=== PATIENT | male | born 1985 | race Caucasian/White ===

== ENCOUNTER 2020-02-15 09:13 | Day surgery (SDC) | payer OTHER, SELFPAY ==
[2020-02-09 12:58] VITALS: BMI 39.5
--- NOTE | 2020-02-14 09:21 | HO.ANESPROP2 ---
Documented by User: Yun Martinez 02/14/20 09:22 HPI - Anesthesia Eval Consult details Narrative: 34yo M for Colonoscopy [facility] Past Medical History Medical History Family hx of colon cancer Thyroid disease Surgical History Surgical History Hx of arthroscopic knee surgery Social History Social History Smoking Status: Former smoker Packs Per Day: 1 Cigarettes Per Day: 20.0 Years Smoked: 10 Smoked in Last 30 Days: No Smoking Quit Date: 2013 Use of substances other than those prescribed or required for medical reasons: No Have you been hit, kicked, punched, or otherwise hurt by someone within the past year? If so, by whom?: No Advance Directives Information Provided: No Recently lost weight without trying: No Meds Allergies Allergy/AdvReac Type Severity Reaction Status Date / Time No Known Allergies Allergy Verified 02/09/20 13:02 [No Known Allergies*] Home Medications Medication Instructions Recorded Confirmed Type levothyroxine 1 tab PO QAM 02/09/20 02/09/20 History Exam Exam Date and Time: February 14, 2020920 Height,Weight and Vital Signs: Height 5 ft 8 in Weight 117.934 kg Pertinent Lab Results Pertinent Lab Results: Laboratory Tests 11/21/19 11/21/19 11:24 11:24 WBC 6.2 Hgb 14.7 Hct 43.8 Plt Count 299 Sodium 138 Potassium 4.3 Chloride 106 BUN 16 Creatinine 0.91 Assessment and Plan Assessment Anesthesia Assessment: Chart Reviewed Documented by User: Baldemar Locke 02/15/20 10:27 [facility] Past Medical History Medical History Family hx of colon cancer Thyroid disease Surgical History Surgical History Hx of arthroscopic knee surgery Social History Social History Smoking Status: Former smoker Packs Per Day: 1 Cigarettes Per Day: 20.0 Years Smoked: 10 Smoked in Last 30 Days: No Smoking Quit Date: 2013 Use of substances other than those prescribed or required for medical reasons: No Have you been hit, kicked, punched, or otherwise hurt by someone within the past year? If so, by whom?: No Advance Directives Information Provided: No Recently lost weight without trying: No Meds Allergies Allergy/AdvReac Type Severity Reaction Status Date / Time No Known Allergies Allergy Verified 02/09/20 13:02 [No Known Allergies*] Home Medications Medication Instructions Recorded Confirmed Type levothyroxine 1 tab PO QAM 02/09/20 02/09/20 History Exam Airway Mallampati Class: II TM Dist: >3cm Neck ROM: Full Heart: RRR Assessment and Plan Assessment Anesthesia Assessment: Anesthesia Plan Discussed Final Anesthetic Review NPO: Yes (Except med) ASA Class: II Final Preanesthetic Review: Consent Obtained/Reviewed Anesthetic Plan Anesthetic Plan: MAC: Disposition: Standard PACU
[2020-02-15 09:52] VITALS: BP 122/75; PULSE 87; RESP 16; TEMP 36.3; O2SAT 95
[2020-02-15] MEDS: Lactated Ringers 1,000 ML 100 ML IVCONT (09:57)
--- NOTE | 2020-02-15 10:35 | MHC.SHP ---
Pre-Procedural Eval Section B Chief Complaint: SCREENING,FAMILY HX OF COLON CANCER Relevant Family History (Specify if Yes): Yes Relevant Social History: None Present Medications: see Short Stay Collaborative assessment Medical History: Significant History (hypothyroid) History of Previous Operations: No relevant previous surgery Allergies: Allergies Allergy/AdvReac Type Severity Reaction Status Date / Time No Known Allergies Allergy Verified 02/09/20 13:02 [No Known Allergies*] Review of Systems Sugical H&P ROS: Negative: Constitution, Cardiovascular, Respiratory, Neurological, Psychiatric, Hem-Onc, Allergic/Immunologic, Gastrointestinal, Genitourinary, Musculoskeletal, Integumentary, Endocrine and Eyes/Ears/Nose/Throat Exam Surgical H&P Exam: Normal: HEENT, Normal: Heart, Normal: Lungs, Normal: Extremities, Normal: Abdomen, Normal: Skin and Normal: Neurological Plan Diagnosis/Plan: Unchanged Patient has been examined and remains a candidate for the planned procedure
--- NOTE | 2020-02-15 10:36 | PM.OP ---
Brief Operative Note Date of procedure: 02/15/20 Pre-op diagnosis: colon screen, high risk Post-op diagnosis: same Procedure: colonoscopy--see op note Surgeon: Edson Johns MD Anesthesia: MAC Estimated blood loss (mL): 0 Condition: stable Disposition: PACU
--- NOTE | 2020-02-15 10:37 | W.PM.OPN ---
Operative Note Operative Note Narrative: Operative Information Procedure Description: Colonoscopy COLONOSCOPY Instrument: Olympus variable stiffness pediatric scope 190L Colonoscopy Monitoring: Vital signs and clinical assessment, continuous EKG monitoring, Pulse oximetry, Carbon Dioxide monitoring and blood pressure monitoring were done throughout the procedure. Colon withdrawal time was 9 minutes. Procedure: The patient was placed in the left lateral decubitis position and pre-procedure medications were administered. After a digital rectal examination of the ano-rectum, the video colonoscope was inserted into the rectum and advanced through the colon to the cecum/TI. The colonoscope was slowly withdrawn in a retrograde panoramic fashion and the colon mucosa was carefully examined including a retroflexed view of the rectum. Findings and interventions are described below. Procedure Difficulty: Findings: Terminal Ileum-normal Cecum:normal Ascending Colon: normal Transverse Colon -normal Descending Colon:normal Sigmoid Colon: few diverticula seen Rectum: Retroflexion with moderate sized internal hemorrhoids, grade I Anorectum - normal Colon preparation: [facility] Bowel Preparation Scale Right colon; 3 Transverse colon: 3 Left colon; 3 (0 = Unprepared colon segment with mucosa not seen due to solid stool that cannot be cleared. 1 = Portion of mucosa of the colon segment seen, but other areas of the colon segment not well seen due to staining, residual stool and/or opaque liquid. 2 = Minor amount of residual staining, small fragments of stool and/or opaque liquid, but mucosa of colon segment seen well. 3 = Entire mucosa of colon segment seen well with no residual staining, small fragments of stool or opaque liquid) Impression and Post Procedure Diagnosis: internal hemorrhoids diverticular disease Plan: High fiber diet leaflet Avoid straining at stool, epsom salts and sitz bath prn, anusol supps or cream prn Repeat Colonoscopy in 5 years or earlier if clinically indicated Above findings were reviewed with the patient and relevant handouts were provided if indicated.
[2020-02-15 10:59] VITALS: BP 117/78; PULSE 100; RESP 18; TEMP 36.5; O2SAT 100
[2020-02-15 11:15] VITALS: BP 108/52; PULSE 74; RESP 18; TEMP 36.1
--- NOTE | 2020-02-15 11:55 | HO.POSTANES ---
Post Anesthesia Evaluation Post Anesthesia Evaluation Vital Signs: Vital Signs Temp Pulse Resp BP Pulse Ox 02/15/20 11:15 97 F 74 18 108/52 L 02/15/20 10:59 97.7 F 100 18 117/78 100 02/15/20 09:52 97.4 F 87 16 122/75 95 Anesthesia: Monitored Mental Status: Awake Pain Control: Satisfactory Nausea/Vomiting: None Hydration: Adequate Anesthesia-Related Issues: No Anes. Related Issues
== END 2020-02-15 12:00 | disposition home or self-care (01) ==
PROVIDERS: PCP Physician Assistant; Visit Provider Internal Medicine Gastroenterology
PROC: 0DJD8ZZ Inspection of Lower Intestinal Tract, Via Natural or Artificial Opening Endoscopic (ICD-10-PCS; CPT 45378; principal; 2020-02-15 10:30)
DX: Z12.11 Encounter for screening for malignant neoplasm of colon (principal); Z80.0 Family history of malignant neoplasm of digestive organs; K57.30 Diverticulosis of large intestine without perforation or abscess without bleeding; K64.0 First degree hemorrhoids; E06.3 Autoimmune thyroiditis; Z79.899 Other long term (current) drug therapy; Z87.891 Personal history of nicotine dependence
CPT/HCPCS: 45378

== ENCOUNTER 2020-03-20 08:06 | Outpatient (REF) | payer OTHER, SELFPAY ==
--- NOTE | 2020-03-21 08:43 | MHC.AU.P13 ---
Adult Audiological Evaluation Date of Visit: 03/20/20 Sustainability Specialist Used: Not Applicable Reason for Appointment: Audiologic evaluation due to increasing difficulties hearing. Has also been experiencing intermittent tinny quality to sounds or a perception of sounds being out of tune . This symptom has been increasing over time so that he notices it every 1 1/2 to 2 weeks when he used to notice it once every few months. Does patient feel they have a hearing loss?: Yes If Yes, Which Ear?: Both Ears When Was Hearing Difficulty First Noticed?: 10 or more years Has hearing been tested previously?: Yes Previous Hearing Test Results: Performed in the . Results are not available for review Hearing Handicap Inventory HHIE SCORE: 28 Based on HHIE score, patient has: Severe perceived hearing handicap Ear History: Ear Infections in Childhood: Both Ears History of Ear Wax Buildup: Both Ears Previous Ear Surgery: Pressure Equalization Tubes as a child Bothersome Tinnitus/Ringing/Noises in Ears: Both Ears Ear used on the phone: Left Ear History of occupational noise exposure?: Yes History: History: Yes Branch: [employer] Years in : 13-16 Years Medical History: Medical History: Autoimmune Disease Thyroid Disease Tobacco Use Medical History: Diagnosed with Kristen Syndrome and Hypothyroidism. Research suggests these conditions may increase hearing loss and middle ear dysfunction. Medication List: Levothyroxine Otoscopy: Right Ear: Edge of tympanic membrane dull compared to medial Left Ear: Scarring on tympanic membrane Tympanometry: Right Ear: Normal Middle Ear System (Type A) Left Ear: Normal Middle Ear System (Type A) Otoacoustic Emissions Frequency Range Used: 1.6-8 kHz Right Ear Results: Absent Emissions Analysis: Reduced/absent emissions may be consequence of middle ear dysfunction Left Ear Results: Absent Emissions Analysis: Reduced/absent emissions may be consequence of middle ear dysfunction Hearing Evaluation: Transducer(s) Used: Insert Earphones Bone Conduction Method: Conventional Audiometry Stimuli Used: Pure Tones Right Ear: Description of Hearing: Mild conductive hearing loss through all frequencies Left Ear: Description of Hearing: Borderline normal hearing thresholds with conductive components of 10-20 dB Speech Recognition Threshold (SRT): Method Used: Monitored Live Voice Stimuli Used: Spondee Words Right Ear: 20 dB HL Left Ear: 20 dB HL Word Discrimination: Method: Recorded Lists Word Lists Used: NU-6 Right Ear: 100% at a listening level of 60 dB HL Left Ear: 100% at a listening level of 60 dB HL Comparison: Compared to the most recent evaluation: N/A Recommendations: Recommendations: Audiological re-evaluation in 6 months. Referral to Ear, Nose, and Throat to address middle ear dysfunction. Recommendations (Other): Sending a 6 month audiologic re-evaluation reminder card. If changes in hearing or symptoms, an earlier appointment should be considered. Diagnosis: Primary Diagnosis: H90.0 Conductive Hearing Loss, Bilateral Secondary Diagnosis: H69.93 Unspecified Eustachian Tube Dysfunction, Bilateral Services Performed: Services Performed: Comprehensive Audiological Evaluation (CPT 49899) Diagnostic Otoacoustic Emissions (CPT 69613, 26+TC) Tympanometry (CPT 60604) Signature: Provider: Darrick Cerrato, CCC-A
== END 2020-03-20 08:07 | disposition home or self-care (01) ==
LOC: HO.SH 08:06
PROVIDERS: Visit Provider Physician Assistant
DX: H90.0 Conductive hearing loss, bilateral (principal); H69.93 Unspecified Eustachian tube disorder, bilateral
CPT/HCPCS: 92557; 92567; 92588

== ENCOUNTER 2020-05-01 09:00 | Outpatient (REF) | payer OTHER, SELFPAY ==
[2020-05-01 14:19] LABS: Free T4 (Free Thyroxine) 1.28 ng/dL (0.71-1.85); Thyroid Stimulating Hormone 1.83 uIU/mL (0.32-4.0)
== END 2020-05-01 09:01 | disposition home or self-care (01) ==
LOC: HO.LAB 09:00
PROVIDERS: PCP Physician Assistant; Visit Provider Nurse Practitioner Gerontology
DX: E06.3 Autoimmune thyroiditis (principal)
CPT/HCPCS: 36415; 84439; 84443

== ENCOUNTER 2021-04-22 10:10 | Outpatient (REF) | payer OTHER, SELFPAY ==
--- NOTE | ~2021-04-22 | XR_ITS ---
EXAMINATION: BILATERAL WRIST X-RAY CLINICAL INFORMATION: Pain COMPARISON: None TECHNIQUE: 4 views of each wrist FINDINGS: Left: Bone alignment is normal. No fracture or dislocation is seen. Joint spaces are normal. There may be a cyst in the lunate. Soft tissues are unremarkable. Right: Bone alignment is normal. No fracture or dislocation is seen. Joint spaces and soft tissues are normal. XR/XR wrist RT 2V IMPRESSION: Question small cyst in the left lunate bone otherwise unremarkable exam.
--- NOTE | ~2021-04-22 | XR_ITS ---
EXAMINATION: BILATERAL WRIST X-RAY CLINICAL INFORMATION: Pain COMPARISON: None TECHNIQUE: 4 views of each wrist FINDINGS: Left: Bone alignment is normal. No fracture or dislocation is seen. Joint spaces are normal. There may be a cyst in the lunate. Soft tissues are unremarkable. Right: Bone alignment is normal. No fracture or dislocation is seen. Joint spaces and soft tissues are normal. XR/XR wrist LT 2V IMPRESSION: Question small cyst in the left lunate bone otherwise unremarkable exam.
[2021-04-22 10:33] LABS: Hematocrit 42.7 % (42.0-52.0); Hemoglobin 14.4 g/dl (14.0-18.0); Mean Corpuscular HGB Conc 33.7 g/dl (31.0-36.0); Mean Corpuscular Hemoglobin 29.7 pg (27.0-33.0); Mean Platelet Volume 8.2 fL (9.4-12.4); Platelet Count 287 X10*3/uL (160-400); Red Blood Count 4.85 X10*6/uL (4.60-5.80); White Blood Count 5.9 X10*3/uL (4.8-10.8)
[2021-04-22 10:45] LABS: Estimated Average Glucose 103 mg/dL; Hemoglobin A1c % 5.2 %
[2021-04-22 10:54] LABS: Alanine Aminotransferase 22 U/L (0-40); Albumin Level 4.2 g/dL (3.5-5.0); Alkaline Phosphatase 74 U/L (39-117); Anion Gap 9 (12-20); Aspartate Amino Transferase 17 U/L (5-37); Bilirubin Total < 0.2 mg/dL (0.0-1.0); Blood Urea Nitrogen 14 mg/dL (9-16); Calcium 8.8 mg/dL (8.4-10.2); Carbon Dioxide 25 mmol/L (22-29); Chloride 108 mmol/L (96-108); Cholesterol 193 mg/dL; Estimated Glomerular Filt Rate > 60; Glucose Fasting 89 mg/dL (60-99); HDL Cholesterol 35 mg/dL; LDL Cholesterol Calculated 136 mg/dl; Potassium 4.4 mmol/L (3.3-5.1); Sodium 138 mmol/L (135-145); Total Protein 7.3 g/dL (6.5-8.0); Triglycerides 111 mg/dL
[2021-04-22 11:17] LABS: TSH reflex Free T4 3.89 uIU/mL (0.32-4.0)
== END 2021-04-22 10:11 | disposition home or self-care (01) ==
LOC: HO.LAB 10:10
PROVIDERS: PCP Physician Assistant; Visit Provider Physician Assistant
DX: Z13.1 Encounter for screening for diabetes mellitus (principal); Z13.220 Encounter for screening for lipoid disorders; M25.531 Pain in right wrist; M25.532 Pain in left wrist; E06.3 Autoimmune thyroiditis; I10 Essential (primary) hypertension
CPT/HCPCS: 36415; 73100; 80053; 80061; 83036; 84443; 85027

== ENCOUNTER → 2021-05-12 14:24 | Outpatient (BNVA) | payer OTHER, SELFPAY | PROVIDERS: PCP Physician Assistant; Visit Provider Nurse Practitioner Gerontology ==

== ENCOUNTER 2022-02-27 09:31 | Outpatient (REF) | payer OTHER, SELFPAY ==
[2022-02-27 10:30] LABS: Hematocrit 43.3 % (42.0-52.0); Hemoglobin 14.5 g/dl (14.0-18.0); Mean Corpuscular HGB Conc 33.5 g/dl (31.0-36.0); Mean Corpuscular Volume 86.6 fL (80.0-98.0); Mean Platelet Volume 8.1 fL (9.4-12.4); Platelet Count 308 X10*3/uL (160-400); White Blood Count 4.7 X10*3/uL (4.8-10.8)
[2022-02-27 11:11] LABS: Alanine Aminotransferase 18 U/L (0-40); Albumin Level 4.4 g/dL (3.5-5.0); Alkaline Phosphatase 70 U/L (39-117); Anion Gap 15 (12-20); Aspartate Amino Transferase 19 U/L (5-37); Bilirubin Total 0.6 mg/dL (0.0-1.0); Blood Urea Nitrogen 13 mg/dL (9-16); Calcium 9.1 mg/dL (8.4-10.2); Carbon Dioxide 24 mmol/L (22-29); Chloride 104 mmol/L (96-108); Cholesterol 189 mg/dL; Estimated Glomerular Filt Rate > 60; Glucose Fasting 85 mg/dL (60-99); HDL Cholesterol 35 mg/dL; LDL Cholesterol Calculated 131 mg/dl; Potassium 4.7 mmol/L (3.3-5.1); Sodium 138 mmol/L (135-145); TSH reflex Free T4 3.52 uIU/mL (0.32-4.0); Total Protein 7.5 g/dL (6.5-8.0); Triglycerides 117 mg/dL
== END 2022-02-27 09:32 | disposition home or self-care (01) ==
LOC: HO.LAB 09:31
PROVIDERS: PCP Physician Assistant; Visit Provider Nurse Practitioner Family
DX: Z00.00 Encounter for general adult medical examination without abnormal findings (principal); E06.3 Autoimmune thyroiditis
CPT/HCPCS: 36415; 80053; 80061; 84443; 85027

== ENCOUNTER 2023-05-13 09:13 | Outpatient (AMB) | payer OTHER, SELFPAY ==
--- NOTE | 2023-05-13 09:14 | A.OFFPC_ITS ---
Vital Signs 05/13/23 09:15 Height 5 ft 8 in Weight 237 lb 8 oz BMI 36.1 BP 102/70 Blood Pressure Location Lt brachial Position Sitting Pulse 85 Pulse Source Pulse Oximeter Pulse Oximetry (%) 98 Oxygen Delivery Method Room Air Intake Visit Reasons: PE Intake Note: The patient is present today for a physical examination. This appointment will husam the final one as the patient is relocating to [place], [place] in the coming months. Graphite Grinder Required: No Accompanied by: Self / Same As Patient Allergies No Known Allergies [No Known Allergies*] Allergy (Verified 05/13/23 09:38) Medication List - Last Reconciled 05/13/23 by Ryan Pathak PA-C diclofenac sodium 3% 1 appl topical BID 15 days levothyroxine (Euthyrox) 112 mcg PO QAM Tobacco use date assessed: 05/13/23 Dental Screening Dental Screen Date: 05/13/23 Did you have a dental visit in the last 12 months?: Yes Did you have a dental problem in the last 6 months where you did not have access to dental care?: No Was dental information given to patient?: Patient has dentist HPI PE HPI Details Patient is a 37-year-old male here today for an annual physical. Patient has a past medical history significant for obesity, Kristen's thyroiditis. Concern--> he reports over the last year having worsening short-term memory issue. He reports his long-term memory is fine. Has been unable to remember short tasks specially in his personal life. He does report it is causing him trouble with his . He is interested in trying medication to help with his focus and attention as this may be the problem. .. Hypothyroidism: Continues on levothyroxine, has lost some weight since last office visit. Will recheck TSH to assure appropriate. .. He works as as a armored vehicle officer and will be moving to [place] in near future. Vaccines: Up-to-date with tetanus, COVID. UTD with flu vaccine [facility] Medical History Autoimmune thyroiditis Family hx of colon cancer Kristen's disease Thyroid disease Surgical History Hx of colonoscopy Hx of arthroscopic knee surgery Family History Father Colon cancer, Onset Age: 30 CVA (cerebral vascular accident) CAD (coronary artery disease) Social History (Updated 05/13/23 @ 09:41 by Ryan Pathak PA-C) Household Members: Spouse Housing: House Alcohol intake: current Alcohol intake frequency: holidays/special occasions only Patient Tobacco Use Status: Former Tobacco user Tobacco use type: Smokeless Tobacco Cigarette Packs Per Day: 1 Cigarettes Per Day: 20.0 Years Smoked: 10 e-Cigarette/Vaping Use: Currently Using service: No Current occupational status: employed Cognitive needs: No Hearing needs: No Vision needs: No Questionnaire PHQ-9 Over the last 2 weeks, how often have you been bothered by any of the following problems? 1. Little interest or pleasure in doing things: not at all 2. Feeling down, depressed, or hopeless: not at all 3. Trouble falling or staying asleep, or sleeping too much: not at all 4. Feeling tired or having little energy: not at all 5. Poor appetite or overeating: not at all 6. Feeling bad about yourself - or that you are a failure or have let yourself or your family down: not at all 7. Trouble concentrating on things, such as reading the newspaper or watching television: not at all 8. Moving or speaking so slowly that other people could have noticed. Or the opposite - being so fidgety or restless that you have been moving around a lot more than usual: not at all 9. Thoughts that you would be better off or of hurting yourself in some way: not at all Total score: 0 Depression Screening Interpretation: Negative Depression Screening Done: Yes 61541 - PHQ-9 Billing: Yes Source: Developed by Drs. Raul Snyder, Jessica Albrecht, Prasanna Jarrett and colleagues, with an educational wanda from [employer] Thrive Questionnaire Date Thrive assessed: 05/13/23 I am a: Patient What is your living situation today?: I have a steady place to live Within the past 12 months, did the food you bought not last and you didn't have the money to get more?: Never true Within the past 12 months, did you worry whether your food would run out before you got money to buy more?: Never true Do you have trouble paying for medicines?: No Do you have trouble getting transportation to medical appointments?: No Do you have trouble paying your heating and electricity bill?: No Do you have trouble taking care of your child, family member or friend?: No Do you have trouble with day-to-day activities such as bathing, preparing meals, shopping, managing finances, etc.?: No Are you currently unemployed and looking for a job?: No Are you interested in more education?: No Please select the resources that you would like help with: None Currently or been in a relationship where the following occur: no concerns reported THRIVE Score: 0 AUDIT C Alcohol Use Questionnaire (AUDIT-C) 1. How often do you have a drink containing alcohol?: Never 2. How many drinks containing alcohol do you have on a typical day when you are drinking?: 1 or 2 3. How often do you have six or more drinks on one occasion?: Never Total Score: 0 Score Reviewed/Action Taken: No MIQUEL-7 AMB Questionnaire MIQUEL-7 Date MIQUEL - 7 assessed: 05/13/23 Feeling nervous, anxious, or on edge: 0 = Not at all Not being able to stop or control worryin = Not at all Worrying too much about different things: 0 = Not at all Trouble relaxin = Not at all Being so restless that it is hard to sit still: 0 = Not at all Becoming easily annoyed or irritable: 0 = Not at all Feeling afraid as if something awful might happen: 0 = Not at all Total MIQUEL-7 score (0-4 normal; 5-9 mild; 10-14 moderate; 15-21 severe): 0 Source: Developed by Drs. Raul Snyder, Jessica Albrecht, Prasanna Jarrett and colleagues, with an educational wanda from [employer] MIQUEL-7 Assessment Billing MIQUEL-7 Assessment Tool: MIQUEL-7 Assessment 97836 Review of Systems Const Denies body aches, Denies chills, Denies excessive sweating, Denies fatigue, Denies fever(s) and Denies headache(s) Eyes Denies blurry vision ENT Denies dysphagia, Denies vertigo, Denies dizziness, Denies headache(s), Denies hearing loss and Denies tinnitus Card Denies chest pain, Denies chest pain with activity, Denies syncope, Denies irregular heart rhythm and Denies dyspnea Resp Denies chest congestion, Denies cough, Denies hemoptysis, Denies dyspnea and Denies wheezing GI Denies abdominal pain, Denies melena, Denies hematochezia, Denies coffee ground emesis, Denies dysphagia, Denies diarrhea, Denies nausea and Denies vomiting Denies difficulty urinating, Denies dysuria, Denies urinary frequency, Denies urinary hesitancy and Denies urinary urgency Musc Denies arthralgias, Denies limited range of motion, Denies muscle cramps and Denies muscle weakness Skin/Breast Denies rash and Denies skin ulcer Neuro Denies Abnormal speech present, Denies confusion, Denies vertigo, Denies dizziness, Denies syncope, Denies headache(s), Reports memory loss and Denies seizure-like activity Psych Denies anxiety, Denies confusion, Denies depression, Reports difficulty concentrating, Reports memory loss, Denies panic attacks and Denies paranoia Endo Denies excessive sweating, Denies fatigue, Denies flushing, Denies polydipsia and Denies polyuria Aller/Immun Denies wheezing Physical exam (Primary Care) Vital Signs: Last Vital Signs Pulse 85 05/13/23 09:15 BP 102/70 05/13/23 09:15 Pulse Ox 98 05/13/23 09:15 Oxygen Delivery Method Room Air 05/13/23 09:15 BMI result Body Mass Index 36.1 BMI Assessment/Plan discussion: High Tobacco/Smoking Status: Tobacco use Status Tobacco use date assessed 05/13/23 05/13/23 09:21 Patient Tobacco Use Status Former Tobacco user 05/13/23 09:41 Tobacco use type Smokeless Tobacco 05/13/23 09:41 e-Cigarette/Vaping Use Currently Using 05/13/23 09:41 PHQ-9: PHQ-9 Score PHQ-9: Total score 0 05/13/23 09:47 Depression Screening Interpretation: Negative Thrive Assessment: Date of Thrive Assessment Date Thrive assessed 05/13/23 05/13/23 09:21 Currently or been in a relationship where the following occur: no concerns reported Const Other: Obese General: cooperative, comfortable, no acute distress, alert and awake; No confusion Orientation/consciousness: oriented to person, oriented to place, patient oriented x3 and No confusion HENMT Head: Yes normocephalic Ears: external ears normal and TM's normal bilaterally Face and sinus: No sinus tenderness Mouth: Normal oral and palatal mucosa present and tongue normal Teeth and gingiva: dentition normal and gingiva normal Throat: Yes posterior oropharynx normal, Yes tonsils normal and Yes uvula midline Eyes Conjunctivae: conjunctivae normal Sclerae: sclerae normal Pupils: Equal, round and reactive pupils present EOM: EOMs intact bilaterally Direct Ophthalmoscopy: No no photophobia Neck Neck: Yes no lymphadenopathy, No tender and Yes no JVD Thyroid: Thyroid normal Carotids: no bruits Chest Chest palpation & inspection: no tenderness Resp Effort & Inspection: normal respiratory effort, no audible wheezes, not labored and no stridor Auscultation: no crackles, no rales, no rhonchi and no wheezes Cardio Jugular venous distension: no JVD Rate: regular rate, not bradycardic and not tachycardic Rhythm: regular rhythm Bruits: no carotid bruits Peripheral pulses: Peripheral pulses 2+ throughout GI Inspection: Yes normal to inspection, No abdominal wall ecchymosis and No visible herniation Palpation (GI): Soft to palpation, nontender, no guarding, not rigid and No hepatosplenomegaly present Auscultation: normoactive bowel sounds General: Yes no CVA tenderness Back/Spine/Pelvis Back: no CVA tenderness and No back tenderness Cervical Spine: cervical ROM normal Thoracic/Lumbar Spine: thoracic and lumbar spine normal to inspection, straight leg raise negative bilaterally, No thoraco-lumbar ROM limited and No lumbar spinal tenderness Skin Lesions: no lesions Rashes: no rashes Wounds: no wounds Neuro General: oriented to person, oriented to place, patient oriented x3, CN's II-XI intact bilaterally and No confusion Cranial nerves: Yes Equal, round and reactive pupils present and Yes Normal accommodation reflex present Cognition (Neuro): normal cognition Speech: No Abnormal speech present Gait exam (Neuro): Normal gait present Motor exam (neuro): 5/5 motor strength present throughout Extrem Right upper extremity: full ROM; no cyanosis Left upper extremity: full ROM; no cyanosis Right lower extremity: no edema Left lower extremity: no edema Psych Appearance: grossly normal Mental Status: mental status grossly normal Affect: normal affect Attitude: cooperative Thought process: Normal thought process present Assessment and Plan Assessment & Plan (1) Annual physical exam: Code(s): Z00.00 - Encounter for general adult medical examination without abnormal findings (2) 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 Has lost weight since last office visit.. Will recheck TSH to assure appropriate. (3) ADD (attention deficit disorder): Code(s): F98.8 - Other specified behavioral and emotional disorders with onset usually occurring in childhood and adolescence Qualifiers: Hyperactivity presence: absent Qualified Code(s): F98.8 - Other specified behavioral and emotional disorders with onset usually occurring in childhood and adolescence Plan: As per HPI he does believe he is an attention and focus issue. Often not remembering short-term tasks. He is interested in starting medication to help him with his attention focus. Will follow-up with patient in 4 weeks to evaluate the effectiveness of Strattera medication. (4) Obese: Code(s): E66.9 - Obesity, unspecified Qualifiers: Body mass index: BMI 38.0-38.9 Obesity classification: adult class 2 (BMI 35 - 39.9) Obesity type: due to excess calories Serious obesity comorbidity presence: without serious comorbidity Qualified Code(s): E66.09 - Other obesity due to excess calories; Z68.38 - Body mass index [BMI] 38.0-38.9, adult Plan: Patient does understand his BMI is over 30 will continue working on being more physically active and adapting to better eating habits to reduce his weight. (5) Memory impairment: Code(s): R41.3 - Other amnesia Plan: As above (6) Screening for diabetes mellitus (DM): Code(s): Z13.1 - Encounter for screening for diabetes mellitus Orders: Orders TSH reflex Free T4 05/13/23 E06.3 - Autoimmune thyroiditis Comprehensive Diamond. 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
[2023-05-13 09:15] VITALS: BP 102/70; PULSE 85; O2SAT 98; BMI 36.1
== END 2023-05-13 09:58 | disposition home or self-care (01) ==
PROVIDERS: PCP Physician Assistant; Visit Provider Physician Assistant
DX: Z00.00 Encounter for general adult medical examination without abnormal findings (principal); E06.3 Autoimmune thyroiditis; E66.09 Other obesity due to excess calories; Z68.38 Body mass index [BMI] 38.0-38.9, adult; R41.3 Other amnesia; Z13.1 Encounter for screening for diabetes mellitus
CPT/HCPCS: 99395

== ENCOUNTER 2023-05-13 10:08 | Outpatient (REF) | payer OTHER, SELFPAY ==
[2023-05-13 11:45] LABS: Alanine Aminotransferase 16 U/L (0-40); Albumin Level 4.3 g/dL (3.5-5.0); Alkaline Phosphatase 64 U/L (39-117); Anion Gap 11 (12-20); Aspartate Amino Transferase 18 U/L (5-37); Bilirubin Total 0.5 mg/dL (0.0-1.0); Blood Urea Nitrogen 11 mg/dL (9-16); Calcium 9.6 mg/dL (8.4-10.2); Carbon Dioxide 28 mmol/L (22-29); Chloride 107 mmol/L (96-108); Estimated Glomerular Filt Rate > 60; Glucose Fasting 90 mg/dL (60-99); Potassium 4.3 mmol/L (3.3-5.1); Sodium 142 mmol/L (135-145); TSH reflex Free T4 2.29 uIU/mL (0.32-4.0); Total Protein 7.6 g/dL (6.5-8.0)
== END 2023-05-13 10:09 | disposition home or self-care (01) ==
LOC: HO.LAB 10:08
PROVIDERS: PCP Physician Assistant; Visit Provider Physician Assistant
DX: E06.3 Autoimmune thyroiditis (principal); Z13.1 Encounter for screening for diabetes mellitus
CPT/HCPCS: 36415; 80053; 84443

== ENCOUNTER 2023-06-23 14:33 | Outpatient (AMB) | payer OTHER, SELFPAY ==
--- NOTE | 2023-06-23 14:32 | A.OFFPC_ITS ---
Intake Visit Reasons: f/u ADD Instrument Maker And Repairer Required: No Information Interpreted: non-clinical & clinical Branch Operation Evaluation Manager: Not Required per policy Accompanied by: Self / Same As Patient Allergies No Known Allergies [No Known Allergies*] Allergy (Verified 06/23/23 15:00) Medication List - Last Reconciled 06/23/23 by Ryan Pathak PA-C atomoxetine (Strattera) 40 mg PO DAILY 14 days atomoxetine (Strattera) 80 mg PO DAILY 30 days diclofenac sodium 3% 1 appl topical BID 15 days levothyroxine (Euthyrox) 112 mcg PO QAM Tobacco use date assessed: 05/13/23 HPI f/u ADD HPI Details Patient is a 37-year-old male being evaluated today via telephone only. Patient following up with his ADD disorder. Was started on Strattera and felt it has been effective reducing his inattentiveness. He would like to stay on medication for now. He will be moving to [place] due to reasons and will establish care with a new PCP Did reviewed most recent labs and noted stable TSH. Will continue on his current dose of levothyroxine at 112 mcg PFSH Medical History Kristen's disease Autoimmune thyroiditis Family hx of colon cancer Thyroid disease Surgical History Hx of colonoscopy Hx of arthroscopic knee surgery Family History Father Colon cancer, Onset Age: 30 CVA (cerebral vascular accident) CAD (coronary artery disease) Social History Household Members: Spouse Housing: House Alcohol intake: current Alcohol intake frequency: holidays/special occasions only Patient Tobacco Use Status: Former Tobacco user Tobacco use type: Smokeless Tobacco Cigarette Packs Per Day: 1 Cigarettes Per Day: 20.0 Years Smoked: 10 e-Cigarette/Vaping Use: Currently Using service: No Current occupational status: employed Cognitive needs: No Hearing needs: No Vision needs: No Questionnaire Thrive Questionnaire Date Thrive assessed: 05/13/23 MIQUEL-7 AMB Questionnaire MIQUEL-7 Date MIQUEL - 7 assessed: 05/13/23 Source: Developed by Drs. Raul Snyder, Jessica Albrecht, Prasanna Jarrett and colleagues, with an educational wanda from [email or web address]. Review of Systems Const Denies headache(s) Eyes Denies loss of vision ENT Denies vertigo, Denies dizziness, Denies headache(s) and Denies sore throat Card Denies chest pain, Denies leg edema and Denies lightheadedness Resp Denies cough, Denies hemoptysis and Denies wheezing GI Denies abdominal pain, Denies melena, Denies constipation, Denies diarrhea and Denies vomiting Denies dysuria, Denies urinary frequency and Denies urinary urgency Musc Denies arthralgias, Denies joint swelling, Denies numbness and Denies tingling Neuro Denies behavioral changes, Denies vertigo, Denies dizziness, Denies headache(s), Denies loss of vision, Denies memory loss, Denies numbness and Denies tingling Psych Denies anxiety, Denies behavioral changes, Denies depression, Denies memory loss and Denies panic attacks Colin/Lymph Denies easy bleeding and Denies easy bruising Aller/Immun Denies wheezing Physical exam (Primary Care) Tobacco/Smoking Status: Tobacco use Status Tobacco use date assessed 05/13/23 06/23/23 14:33 Patient Tobacco Use Status Former Tobacco user 06/23/23 14:33 Tobacco use type Smokeless Tobacco 06/23/23 14:33 e-Cigarette/Vaping Use Currently Using 06/23/23 14:33 Thrive Assessment: Date of Thrive Assessment Date Thrive assessed 05/13/23 06/23/23 14:33 Telehealth Telehealth Location of provider rendering services: practice address Location of patient: address on file Patient Identification confirmed using: Name, : Yes Telehealth method: voice only Patient verbally consented to treatment: Yes Patient verbally consented to billing insurance company: Yes Patient informed of any privacy concerns related to visit: Yes Minutes spent on Phone/Video with Pt.: 11 Assessment and Plan Assessment & Plan (1) ADD (attention deficit disorder): Code(s): F98.8 - Other specified behavioral and emotional disorders with onset usually occurring in childhood and adolescence Qualifiers: Hyperactivity presence: absent Qualified Code(s): F98.8 - Other specified behavioral and emotional disorders with onset usually occurring in childhood and adolescence Plan: Has noted less inattentiveness and improvement in his focus since starting Strattera. 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 Will continue levothyroxine at current dose of 112 mcg. Medications: Changed From atomoxetine (Strattera) 80 mg PO DAILY 30 days 30 caps 0RF F98.8 - Other specified behavioral and emotional disorders with onset usually occurring in childhood and adolescence To atomoxetine (Strattera) 80 mg PO DAILY 90 days 90 caps 0RF F98.8 - Other specified behavioral and emotional disorders with onset usually occurring in childhood and adolescence Discontinued atomoxetine (Strattera) Discontinued Reason: Doctor's Order 40 mg PO DAILY 14 days 14 caps 0RF F98.8 - Other specified behavioral and emotional disorders with onset usually occurring in childhood and adolescence Coding Level of Care Code Tele Est Pt Level 3 (84191) Diagnoses Attention deficit disorder (ADD) without hyperactivity F98.8 Hyperactivity presence: absent Kristen's disease E06.3
== END 2023-06-23 16:37 | disposition home or self-care (01) ==
LOC: HO.HMGH 14:34
PROVIDERS: PCP Physician Assistant; Visit Provider Physician Assistant
DX: F98.8 Other specified behavioral and emotional disorders with onset usually occurring in childhood and adolescence (principal); E06.3 Autoimmune thyroiditis
CPT/HCPCS: 99213